=== PATIENT | female | born 2000 | race American Indian/Alaskan Native ===

== ENCOUNTER 2019-03-05 09:10 | Emergency (ER) | payer MEDICAID ==
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
[2019-03-05 10:16] VITALS: BP 124/80
== END 2019-03-05 10:15 | disposition left against medical advice (07) ==
LOC: ED 09:10
DX: G35 Multiple sclerosis (principal)
CPT/HCPCS: 99282